=== PATIENT | male | born 1985 | race Caucasian/White ===

== ENCOUNTER 2020-11-28 12:32 | Emergency (ER) | payer OTHER ==
[2020-11-28] MEDS ORDERED: IBUPROFEN600 MG PO (14:42)
== END 2020-11-28 14:59 | disposition home or self-care (01) ==
LOC: ER1 12:32
DX: S43.401A Unspecified sprain of right shoulder joint, initial encounter (principal); F17.200 Nicotine dependence, unspecified, uncomplicated; X50.0XXA Overexertion from strenuous movement or load, initial encounter; Y93.89 Activity, other specified; Y92.89 Other specified places as the place of occurrence of the external cause; Y99.0 Civilian activity done for income or pay
CPT/HCPCS: 73030; 99283; J1170

== ENCOUNTER 2021-01-10 19:23 | Emergency (ER) | payer OTHER ==
[~2021-01-10 19:23] MED LIST: IBUPROFEN600 MG PO
== END 2021-01-10 19:35 | disposition left against medical advice (07) ==
LOC: ER1 19:23
DX: Z53.21 Procedure and treatment not carried out due to patient leaving prior to being seen by health care provider (principal)

== ENCOUNTER 2021-03-02 00:47 | Emergency (ER) | payer OTHER ==
[2021-03-02] MEDS ORDERED: NORFLEX 100 MG100 MG PO (03:11)
[2021-03-02] MEDS ORDERED: NAPROXEN500 MG PO (03:11)
== END 2021-03-02 03:23 | disposition home or self-care (01) ==
LOC: ER1 00:47
DX: S43.101A Unspecified dislocation of right acromioclavicular joint, initial encounter (principal); S16.1XXA Strain of muscle, fascia and tendon at neck level, initial encounter; S00.83XA Contusion of other part of head, initial encounter; F17.210 Nicotine dependence, cigarettes, uncomplicated; V49.9XXA Car occupant (driver) (passenger) injured in unspecified traffic accident, initial encounter
CPT/HCPCS: 70450; 71045; 72125; 73030; 99284

== ENCOUNTER 2021-03-06 13:18 | Emergency (ER) | payer OTHER ==
[~2021-03-06 13:18] MED LIST changes: +NAPROXEN500 MG PO; +NORFLEX 100 MG100 MG PO
[2021-03-06 15:05] LABS: HEMOGLOBIN 15.3 gm/dl (14.0-17.5); RED BLOOD COUNT 4.91 M/UL (4.20-5.50); WHITE BLOOD COUNT 8.7 K/UL (4.5-11.0)
[2021-03-06 15:26] LABS: BUN/CREATININE RATIO 19 (0-10)
== END 2021-03-06 18:10 | disposition left against medical advice (07) ==
LOC: ER1 13:18
PROVIDERS: Physician Assistant
DX: Z53.21 Procedure and treatment not carried out due to patient leaving prior to being seen by health care provider (principal)
CPT/HCPCS: 80053; 83605; 83615; 83690; 85025; Q9967; U0002

== ENCOUNTER 2021-04-28 22:49 | Emergency (ER) | payer OTHER ==
[2021-04-29] MEDS ORDERED: IBUPROFEN800 MG PO (02:41)
[2021-04-29] MEDS ORDERED: CYCLOBENZAPRINE10 MG PO (02:50)
== END 2021-04-29 02:50 | disposition home or self-care (01) ==
LOC: ER1 22:49
DX: G89.18 Other acute postprocedural pain (principal); M25.511 Pain in right shoulder; F17.210 Nicotine dependence, cigarettes, uncomplicated; Z88.5 Allergy status to narcotic agent; Z88.8 Allergy status to other drugs, medicaments and biological substances
CPT/HCPCS: 73030; 99283

== ENCOUNTER 2021-06-02 17:15 | Emergency (ER) | payer OTHER ==
[~2021-06-02 17:15] MED LIST changes: +CYCLOBENZAPRINE10 MG PO; +IBUPROFEN800 MG PO
[2021-06-02 19:54] LABS: HEMOGLOBIN 14.4 gm/dl (14.0-17.5); RED BLOOD COUNT 4.57 M/UL (4.20-5.50); WHITE BLOOD COUNT 7.7 K/UL (4.5-11.0)
[2021-06-02 19:58] LABS: BUN/CREATININE RATIO 11 (0-10)
== END 2021-06-02 20:59 | disposition home or self-care (01) ==
LOC: ER1 17:15
PROVIDERS: Family Medicine
DX: G89.28 Other chronic postprocedural pain (principal); M25.511 Pain in right shoulder; F17.200 Nicotine dependence, unspecified, uncomplicated; Z96.611 Presence of right artificial shoulder joint; Z88.5 Allergy status to narcotic agent; Z88.8 Allergy status to other drugs, medicaments and biological substances
CPT/HCPCS: 73030; 80048; 85025; 86140; 99283